=== PATIENT | female | born 2000 | race African-American/Black ===

== ENCOUNTER 2024-12-25 11:22 | Inpatient (IN) | payer OTHER, MEDICAID ==
[2024-12-25] MEDS ORDERED: hydrALAZINE 20 MG/ML VIAL SLOW IVP PRN ×2 (12:04→14:43)
[2024-12-25 12:08] VITALS: BMI 32.1
[2024-12-25 14:23] LABS: Fetal Membranes Rupture RUPTURE DETECTED (No Rupture)
[2024-12-25] MEDS ORDERED: Diphenoxylate HCl/Atropine Tablet PO PRN (14:43)
[2024-12-25] MEDS ORDERED: Lidocaine 1% (PF) 30 ML VIAL SC PRN (14:43)
[2024-12-25] MEDS ORDERED: Acetaminophen 500 MG TAB PO PRN (14:43)
[2024-12-25] MEDS ORDERED: Carboprost 250 MCG/ML AMP IM PRN (14:43)
[2024-12-25] MEDS ORDERED: Methylergonovine 0.2 MG/ML VIAL IM PRN (14:43)
[2024-12-25] MEDS ORDERED: Tranexamic Acid 1,000 MG/10 ML VIAL IVP PRN (14:43)
[2024-12-25] MEDS ORDERED: Promethazine HCl 25 MG/ML VIAL IM PRN ×2 (14:43→23:20)
[2024-12-25] MEDS ORDERED: Misoprostol 200 MCG TAB PR PRN (14:43)
[2024-12-25] MEDS ORDERED: Ibuprofen 800 MG TAB PO PRN (14:43)
[2024-12-25] MEDS ORDERED: Ondansetron PF 4 MG/2 ML Vial IVP PRN ×2 (14:43→23:20)
[2024-12-25] MEDS ORDERED: Oxytocin 30 units/NS 500 ML 500 ML IV SCH ×2 (14:45)
[2024-12-25 15:10] LABS: Hematocrit 36.3 % (34.9-44.5); Hemoglobin 12.7 g/dL (12.0-15.5); Mean Corpuscular Volume 82.9 fL (81.6-98.3); Mean Platelet Volume 11.3 fL (7.4-10.4); Platelet Count 190 10x3/uL (150-450); RBC Distribution Width 12.5 % (11.5-14.5); Red Blood Cell (RBC) Count 4.38 10x6/uL (3.90-5.03); White Blood Cell (WBC) Count 8.59 10x3/uL (3.5-10.5)
[2024-12-25] MEDS: Misoprostol 100 MCG TAB VAG SCH (15:22)
[2024-12-25 15:26] LABS: HBsAg Index 0.24 S/CO (0-0.99); Hep B Surf Ag - L&D Non-Reactive S/CO (NonReactive)
[2024-12-25 15:27] LABS: Syphilis Antibody Nonreactive (Nonreactive)
[2024-12-25] MEDS: Lactated Ringer's 1,000 ML IV SCH ×2 (21:18→21:19)
[2024-12-25] MEDS: fentaNYL 50 mcg/mL 1 mL Vial SLOW IVP PRN (21:36)
[2024-12-25] MEDS: fentaNYL/Ropivacaine Epidural 100 ML ONE (23:00)
[2024-12-25] MEDS ORDERED: ePHEDrine Sulfate 50 MG/10 ML VIAL SLOW IVP PRN (23:20)
[2024-12-25] MEDS ORDERED: Moisturizing Cream (Eucerin) 113 GM JAR TOP PRN (23:20)
[2024-12-25] MEDS ORDERED: Naloxone HCl 0.4 mg/ml Vial IVP PRN ×2 (23:20)
[2024-12-25] MEDS ORDERED: Lactated Ringer's 500 ML IV PRN (23:20)
[2024-12-25] MEDS ORDERED: Acetaminophen 325 MG TAB PO PRN (23:20)
[2024-12-25] MEDS ORDERED: diphenhydrAMINE 50 MG/ML VIAL IVP PRN (23:20)
[2024-12-25] MEDS ORDERED: Communication Order-Pharmacy FS SCH (23:30)
[2024-12-25] MEDS ORDERED: fentaNYL 2 mcg/Ropivacaine 0.2% Epidural 100 ML CADD EPIDURAL SCH (23:30)
[2024-12-26 01:03] LABS: Chlamydia by PCR, Vaginal Swab Not Detected (NotDetected); GC by PCR, Vaginal Swab Not Detected (NotDetected)
[2024-12-26] MEDS: Terbutaline Sulfate 1 MG/ML VIAL SC SCH (01:36)
[2024-12-26] MEDS ORDERED: Terbutaline Sulfate 1 MG/ML VIAL SC SCH (02:00)
[2024-12-26] MEDS ORDERED: fentaNYL 50 mcg/mL 1 mL Vial SLOW IVP PRN (05:35)
[2024-12-26] MEDS ORDERED: Naloxone HCl 0.4 mg/ml Vial IV PRN (05:35)
[2024-12-26] MEDS ORDERED: Meperidine HCl/PF 25 MG (1 mL) VIAL SLOW IVP PRN (05:35)
[2024-12-26] MEDS ORDERED: Moisturizing Cream (Eucerin) 113 GM JAR TOP PRN (05:35)
[2024-12-26] MEDS ORDERED: Ondansetron PF 4 MG/2 ML Vial IVP PRN ×3 (05:35→07:55)
[2024-12-26] MEDS ORDERED: diphenhydrAMINE 50 MG/ML VIAL IVP PRN (05:35)
[2024-12-26] MEDS ORDERED: Naloxone HCl 0.4 mg/ml Vial IVP PRN ×2 (05:35)
[2024-12-26] MEDS ORDERED: Promethazine HCl 25 MG/ML VIAL IM PRN ×2 (05:35→07:55)
[2024-12-26] MEDS ORDERED: Morphine 4 MG/ML VIAL SLOW IVP PRN (05:35)
[2024-12-26] MEDS ORDERED: Communication Order-Pharmacy FS SCH (05:45)
[2024-12-26] MEDS ORDERED: Ketorolac Tromethamine 30 MG (1 mL) VIAL IVP SCH (05:45)
[2024-12-26] MEDS ORDERED: Bupivacaine 0.25% HCL 30 ML VIAL ONE (07:00)
[2024-12-26] MEDS ORDERED: Bupivacaine HCl 0.5%/Epinephrine 1:200,000/PF 30 ml Vial ONE (07:00)
[2024-12-26] MEDS ORDERED: Lidocaine 2% MPF 10 ML AMP (For Epidural Use) ONE (07:00)
[2024-12-26] MEDS ORDERED: Terbutaline Sulfate 1 MG/ML VIAL ONE (07:00)
[2024-12-26] MEDS ORDERED: hydrALAZINE 20 MG/ML VIAL SLOW IVP PRN (07:55)
[2024-12-26] MEDS ORDERED: Bisacodyl 10 MG SUPP PR PRN (07:55)
[2024-12-26] MEDS: Ketorolac Tromethamine 30 MG (1 mL) VIAL IVP SCH (10:58)
[2024-12-26] MEDS: Prenatal Vitamin 1 TAB PO SCH (10:58)
[2024-12-26] MEDS: Docusate 100 MG CAP PO SCH (10:59)
[2024-12-26] MEDS: Ferrous Sulfate 325 MG TAB PO SCH (10:59)
[2024-12-26] MEDS ORDERED: Meperidine HCl/PF 25 MG (1 mL) VIAL IM PRN (17:45)
[2024-12-26] MEDS: diphenhydrAMINE 25 MG CAP PO PRN (17:54)
[2024-12-26] MEDS: Dexamethasone 10 MG/ML VIAL ONE (19:17)
[2024-12-26] MEDS: Oxytocin 10 UNITS/ML VIAL ONE (19:17)
[2024-12-26] MEDS: CEFAZOLIN 2 GM VIAL ONE (19:17)
[2024-12-26] MEDS: Azithromycin 500 MG VIAL ONE (19:17)
[2024-12-26] MEDS: Promethazine HCl 25 MG/ML VIAL ONE (19:18)
[2024-12-26] MEDS: PHENYLEPHRINE-NS 100 MCG/ML 10 ML SYRINGE ONE (19:18)
[2024-12-26] MEDS: Ondansetron PF 4 MG/2 ML Vial ONE (19:18)
[2024-12-26] MEDS: Dexmedetomidine 200 MCG/2 ML VIAL ONE (19:18)
[2024-12-26] MEDS: Morphine PF 10 MG/10 ML VIAL ONE (19:20)
[2024-12-26] MEDS: Erythromycin Base 0.5% Oint 1 GM TUBE ONE (19:20)
[2024-12-26] MEDS: Phytonadione Neonatal 1 MG/0.5 ML AMP ONE (19:21)
[2024-12-27 05:35] LABS: Hematocrit 30.4 % (34.9-44.5); Hemoglobin 10.6 g/dL (12.0-15.5); Mean Corpuscular HGB CONC 34.9 g/dL (32.0-36.0); Mean Corpuscular Hemoglobin 28.8 pg (27.0-33.0); Mean Corpuscular Volume 82.6 fL (81.6-98.3); Mean Platelet Volume 10.8 fL (7.4-10.4); Platelet Count 178 10x3/uL (150-450); RBC Distribution Width 12.4 % (11.5-14.5); Red Blood Cell (RBC) Count 3.68 10x6/uL (3.90-5.03); White Blood Cell (WBC) Count 16.42 10x3/uL (3.5-10.5)
[2024-12-27] MEDS: Ibuprofen 800 MG TAB PO SCH (05:51)
[2024-12-27] MEDS ORDERED: Ibuprofen 800 MG TAB PO PRN (06:02)
[2024-12-27] MEDS: Boostrix 0.5 ML (Tdap) VIAL (>/=7 yrs of age) IM ONE (08:20)
[2024-12-27] MEDS: Ketorolac Tromethamine 30 MG (1 mL) VIAL IVP SCH (08:24)
[2024-12-27] MEDS: HYDROcodone/Acetaminophen 5/325 mg Tablet PO PRN (08:40)
[2024-12-28] MEDS: HYDROcodone/Acetaminophen 5/325 mg Tablet PO PRN (04:12)
[2024-12-28 07:08] VITALS: BP 120/65; TEMP 97.9
[2024-12-28] MEDS: Simethicone Chewable 80 MG TAB PO PRN (11:51)
== END 2024-12-28 15:15 | disposition home or self-care (01) | DRG 788 ==
LOC: CSHLD/OP 11:22 → CSHLD 14:56 → CSHPP 12-26 07:40
PROVIDERS: ADMIT Family Medicine; ATTEND Family Medicine
PROC: 10D00Z1 Extraction of Products of Conception, Low, Open Approach (ICD-10-PCS; principal; 2024-12-26)
DX: O42.02 Full-term premature rupture of membranes, onset of labor within 24 hours of rupture (principal); Z3A.38 38 weeks gestation of pregnancy; Z37.0 Single live birth; O99.02 Anemia complicating childbirth; Z79.82 Long term (current) use of aspirin; O76 Abnormality in fetal heart rate and rhythm complicating labor and delivery; O34.13 Maternal care for benign tumor of corpus uteri, third trimester; D25.9 Leiomyoma of uterus, unspecified; O77.0 Labor and delivery complicated by meconium in amniotic fluid
CPT/HCPCS: 36415; 51702; 84112; 85027; 86780; 86850; 86900; 86901; 87340; 87480; 87491; 87510; 87591; 87660; 88307; 99285; J0665; J1100; J1885; J2274; J2405; J2550; J2590; J3010; J3105